=== PATIENT | female | born 1980 | race American Indian/Alaskan Native ===

== ENCOUNTER 2021-02-09 11:21 | Emergency (ER) | payer BC ==
--- NOTE | 2021-02-09 11:29 | Event Note ---
ED Screening Note Date of service: 02/09/21 Time: 11:28 ED Screening Note: Patient complains of chest pain x4 days History of lupus and fibromyalgia Denies heart history This initial assessment/diagnostic orders/clinical plan/treatment(s) is/are subject to change based on patients health status, clinical progression and re- assessment by fellow clinical providers in the ED. Further treatment and workup at subsequent clinical providers discretion. Patient/guardian urged not to elope from the ED as their condition may be serious if not clinically assessed and managed. Initial orders include: Labs EKG Chest x-ray
--- NOTE | 2021-02-09 12:02 | XRay Report ---
CHEST 2 VIEWS 1151 INDICATION / CLINICAL INFORMATION: chest pain COMPARISON: None available. FINDINGS: SUPPORT DEVICES: None. HEART / MEDIASTINUM: No significant abnormality. LUNGS / PLEURA: Mild diffuse symmetric density in the mid to lower lung suh on PA view is favored to relate to the patient's size and overlying soft tissue rather than true infiltrate. No definite fo chelsie infiltrates are seen. No pleural effusions are noted. No pneumothorax. ADDITIONAL FINDINGS: No significant additional findings. IMPRESSION: No significant acute abnormality Signer Name: Devin Castellano MD Signed: 02/09/2021 11:58 AM Workstation Name: [id number]
[2021-02-09 12:05] LABS: Basophils # (Auto) 0.1 K/mm3 (0.0-0.1); Basophils % (Auto) 0.7 % (0.0-1.8); Eosinophils # (Auto) 0.1 K/mm3 (0.0-0.4); Eosinophils % (Auto) 1.2 % (0.0-4.3); Hematocrit 21.9 % (30.3-42.9); Hemoglobin 7.1 gm/dl (10.1-14.3); Lymphocytes # (Auto) 2.5 K/mm3 (1.2-5.4); Lymphocytes % (Auto) 29.2 % (13.4-35.0); Mean Corpuscular HGB Conc 32 % (30-34); Mean Corpuscular Volume 72 fl (79-97); Monocytes # (Auto) 0.7 K/mm3 (0.0-0.8); Monocytes % (Auto) 8.1 % (0.0-7.3); Platelet Count 386 K/mm3 (140-440); Red Blood Count 3.05 M/mm3 (3.65-5.03); Red Cell Distribution Width 19.6 % (13.2-15.2)
[2021-02-09 12:24] LABS: Alanine Aminotransferase 6 units/L (7-56); Albumin 3.3 g/dL (3.9-5); BUN/Creatinine Ratio 8; Blood Urea Nitrogen 26 mg/dL (7-17); Calcium 8.1 mg/dL (8.4-10.2); Hemolysis Index 7
[2021-02-09] MEDS ORDERED: dexAMETHasone 20 MG/5 ML VIAL IV ONE (14:41)
[2021-02-09] MEDS ORDERED: MORPHINE 4 MG/1 ML INJ IV ONE (14:42)
--- NOTE | 2021-02-09 16:46 | Emergency Department Report ---
- General Chief Complaint: Chest Pain Stated Complaint: CHEST PAIN/SOB /COUGH Time Seen by Provider: 02/09/21 11:28 Source: patient Mode of arrival: Ambulatory Limitations: No Limitations - History of Present Illness Initial Comments: Patient is a 40-year-old F Greek female with past medical history of lupus hypertension and stage II renal disease who is complaining of cough shortness of breath especially at night. Patient states she is coughing up phlegm is having difficulty breathing. This is been for the past 2 to 3 days. She also feels some mild chest discomfort when she coughs. In addition to this complaint the patient states that she has a history of anemia does get short of breath with exertion. She has a history of heavy menses but is not bleeding currently. Patient has had to have several blood transfusions in the past. She denies body aches fevers chills nausea vomiting diarrhea. She has not been taking her blood pressure medicines as prescribed since she just recently moved from [place] and has run out does not have a primary care physician here. - Related Data Previous Rx's Medication Instructions Recorded Last Taken Type Benzonatate [Tessalon Perles] 100 mg PO Q8HR #10 capsule 02/09/21 Unknown Rx Furosemide [Lasix TAB] 40 mg PO BID #60 tablet 02/09/21 Unknown Rx Labetalol HCl [Labetalol 300mg TAB] 300 mg PO DAILY #30 tablet 02/09/21 Unknown Rx predniSONE [Deltasone] 20 mg PO QDAY #30 tab 02/09/21 Unknown Rx predniSONE [Deltasone] 50 mg PO QDAY #5 tab 02/09/21 Unknown Rx Allergies Allergy/AdvReac Type Severity Reaction Status Date / Time Penicillins AdvReac Vomiting Verified 02/09/21 11:24 ED Review of Systems ROS: Stated complaint: CHEST PAIN/SOB /COUGH Other details as noted in HPI Comment: All other systems reviewed and negative ED Past Medical Hx - Past Medical History Hx Hypertension: Yes Hx Renal Disease: Yes Additional medical history: LUPUS/ GOUT/ FIBROMYGALIA - Surgical History Past Surgical History?: No - Medications Home Medications: Home Medications Medication Instructions Recorded Confirmed Last Taken Type Benzonatate [Tessalon Perles] 100 mg PO Q8HR #10 capsule 02/09/21 Unknown Rx Furosemide [Lasix TAB] 40 mg PO BID #60 tablet 02/09/21 Unknown Rx Labetalol HCl [Labetalol 300mg TAB] 300 mg PO DAILY #30 tablet 02/09/21 Unknown Rx predniSONE [Deltasone] 20 mg PO QDAY #30 tab 02/09/21 Unknown Rx predniSONE [Deltasone] 50 mg PO QDAY #5 tab 02/09/21 Unknown Rx ED Physical Exam - General Limitations: No Limitations General appearance: alert, in no apparent distress - Head Head exam: Present: atraumatic, normocephalic - Eye Eye exam: Present: normal appearance - ENT ENT exam: Present: mucous membranes moist - Neck Neck exam: Present: normal inspection - Respiratory Respiratory exam: Present: normal lung sounds bilaterally. Absent: respiratory distress, wheezes, rales, rhonchi - Cardiovascular Cardiovascular Exam: Present: regular rate, normal rhythm. Absent: systolic murmur, diastolic murmur, rubs, gallop - GI/Abdominal GI/Abdominal exam: Present: soft, normal bowel sounds. Absent: distended, tenderness, guarding, rebound - Extremities Exam Extremities exam: Present: normal inspection - Back Exam Back exam: Present: normal inspection - Neurological Exam Neurological exam: Present: alert, oriented X3 - Psychiatric Psychiatric exam: Present: normal affect, normal mood - Skin Skin exam: Present: warm, dry, intact, normal color. Absent: rash ED Course Vital Signs 02/09/21 02/09/21 11:26 15:45 Temperature 98.3 F Pulse Rate 106 H 97 H Respiratory 20 Rate Blood Pressure 230/141 Blood Pressure 227/155 [Right] O2 Sat by Pulse 100 Oximetry ED Medical Decision Making - Lab Data Result diagrams: 02/09/21 11:43 02/09/21 11:43 Lab Results 02/09/21 02/09/21 Range/Units 11:43 11:43 WBC 8.6 (4.5-11.0) K/mm3 RBC 3.05 L (3.65-5.03) M/mm3 Hgb 7.1 L (10.1-14.3) gm/dl Hct 21.9 L (30.3-42.9) % MCV 72 L (79-97) fl MCH 23 L (28-32) pg MCHC 32 (30-34) % RDW 19.6 H (13.2-15.2) % Plt Count 386 (140-440) K/mm3 Lymph % (Auto) 29.2 (13.4-35.0) % Marion % (Auto) 8.1 H (0.0-7.3) % Eos % (Auto) 1.2 (0.0-4.3) % Baso % (Auto) 0.7 (0.0-1.8) % Lymph # (Auto) 2.5 (1.2-5.4) K/mm3 Marion # (Auto) 0.7 (0.0-0.8) K/mm3 Eos # (Auto) 0.1 (0.0-0.4) K/mm3 Baso # (Auto) 0.1 (0.0-0.1) K/mm3 Seg Neutrophils % 60.8 (40.0-70.0) % Seg Neutrophils # 5.2 (1.8-7.7) K/mm3 Sodium 137 (137-145) mmol/L Potassium 3.7 (3.6-5.0) mmol/L Chloride 109.3 H (98-107) mmol/L Carbon Dioxide 17 L (22-30) mmol/L Anion Gap 14 mmol/L BUN 26 H (7-17) mg/dL Creatinine 3.2 H (0.6-1.2) mg/dL Estimated GFR 16 ml/min BUN/Creatinine Ratio 8 % Glucose 83 (65-100) mg/dL Calcium 8.1 L (8.4-10.2) mg/dL Total Bilirubin 0.30 (0.1-1.2) mg/dL AST 14 (5-40) units/L ALT 6 L (7-56) units/L Alkaline Phosphatase 57 (35-129) units/L Troponin T < 0.010 (0.00-0.029) ng/mL Total Protein 6.5 (6.3-8.2) g/dL Albumin 3.3 L (3.9-5) g/dL Albumin/Globulin Ratio 1.0 % - EKG Data -: EKG Interpreted by Me EKG shows normal: sinus rhythm, axis, intervals, QRS complexes, ST-T waves Rate: normal (90) - EKG Data Interpretation: normal EKG (@1150) - Radiology Data Radiology results: image reviewed (Per my interpretation the patient has cardiomegaly with mild pulmonary vascular congestion. Patient is off of her Lasix) [facility] [address] [place] [address] XRay Report Signed Patient: GERHARD JENSEN MR#: [id number] : 1980 Acct:[id number] Age/Sex: 40 / F ADM Date: 02/09/21 Loc: ED Attending Dr: Ordering Physician: TRISHA ESQUEDA Date of Service: 02/09/21 Procedure(s): XR chest routine 2V Accession Number(s): [id number] cc: TRISHA ESQUEDA Fluoro Time In Minutes: CHEST 2 VIEWS 1151 INDICATION / CLINICAL INFORMATION: chest pain COMPARISON: None available. FINDINGS: SUPPORT DEVICES: None. HEART / MEDIASTINUM: No significant abnormality. LUNGS / PLEURA: Mild diffuse symmetric density in the mid to lower lung suh on PA view is favored to relate to the patient's size and overlying soft tissue rather than true infiltrate. No definite focal infiltrates are seen. No pleural effusions are noted. No pneumothorax. ADDITIONAL FINDINGS: No significant additional findings. IMPRESSION: No significant acute abnormality Signer Name: Devin Castellano MD Signed: 02/09/2021 11:58 AM Workstation Name: [id number] - Medical Decision Making Patient is a 40-year-old F Greek female has had cough with phlegm mostly when lying flat. Is may be atypical presentation of orthopnea. Patient does take Lasix and labetalol but has been off his medication for several weeks. Patient has no fever chills or body aches making an infectious process less likely. Patient to be restarted on her Lasix and blood pressure medications. Received a dose of labetalol today which did drop her blood pressure into the 170 systolic range. Also restart the patient on prednisone which she takes daily for her lupus. Patient stable for discharge. Critical care attestation.: If time is entered above; I have spent that time in minutes in the direct care of this critically ill patient, excluding procedure time. ED Disposition Clinical Impression: Pulmonary edema, Hypertensive urgency, Acute bronchitis Disposition: DC-01 TO HOME OR SELFCARE Is pt being admited?: No Does the pt Need Aspirin: No Condition: Stable Instructions: Pulmonary Edema (ED), Acute Bronchitis (ED), Acute Bronchitis, Adult, [id number], Hypertension, Adult, [id number], Pulmonary Edema, [id number] Referrals: PRIMARY CARE, [Primary Care Provider] - 3-5 Days Time of Disposition: 16:52
[2021-02-09 16:47] VITALS: BP 179/113
--- NOTE | 2021-02-11 11:47 | Electrocardiograph Report ---
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
== END 2021-02-09 17:32 | disposition home or self-care (01) ==
LOC: ED 11:21
DX: J20.9 Acute bronchitis, unspecified (principal); J81.1 Chronic pulmonary edema; I16.0 Hypertensive urgency; I10 Essential (primary) hypertension; M79.7 Fibromyalgia; Z88.0 Allergy status to penicillin; Z79.899 Other long term (current) drug therapy
CPT/HCPCS: 36415; 71046; 80053; 84484; 85025; 93005; 96374; 96375; 99284; J1100; J2270